=== PATIENT | female | born 1970 | race Caucasian/White ===

== ENCOUNTER 2025-03-23 12:54 | Outpatient (AMB) | payer OTHER, SELFPAY ==
--- OUTSIDE RECORDS SUMMARY | 2011-12-18 | XMS_ITS | Encounter Summary ---
Author Organization [facility] Address [address] [place] [address] Phone Care Team Providers Care Animal Nutrition Teacher Name Role Phone Unavailable Primary Care Provider Unavailabl e Encounter Details Date Type Department Care Team (Late st Contact Info) Description 12/18/2011 Hospital Encounter [facility],Outside Imaging [address] [place] [address] System, Provider [place] In, [place] [address] Social History Tobacco Use Types Packs/Day Years [...] high school, GED, job training, learning the Palau[place] language, technical skills, or developing parenting skills)? [...] It is not the complete legal health record.[facility]
--- OUTSIDE RECORDS SUMMARY | 2025-01-24 09:45 | XMS_ITS ---
Author Organization [facility] Address [address] [place] [address] Care Team Providers Care Experimental Electronics Developer Name Role Phone Sasha Pelletier Primary Care Provider UnavailLeora Vaughn [phone] Encounters Encounter Location Date Provider Diagnosis [facility] [address] [place] [address] 01/24/2025 Leora Reveles Plan Of Treatment No Information Progress Notes * Celina REEDEROB: 1 (55 yo F)Acc No.[id number]:01/24/2025 Progress Notes Patient: Alejandra MILLER Provider: Canelo Reveles DPM :1970 A ge:54 Y S ex:Female Date:01/24/2025 Address:[address] [place], [place] [id number] Pcp:Sasha Pelletier Subjective: * Chief Complaints: * [...] 01/24/2025 Generated for Printi ng/Famoniqueg/eTransmitting on: 1 04:23 PM EDT
--- NOTE | 2025-03-23 13:08 | MHC.OFFVIS ---
Vital Signs 03/23/25 13:09 Height 5 ft 3 in Weight 180 lb BMI 31.9 BP 128/86 Blood Pressure Location Rt brachial Position Sitting Respiration 16 Pulse 79 Pulse Source Pulse Oximeter Pulse Oximetry (%) 98 Oxygen Delivery Method Room Air Intake Visit Reasons: Re-Establish Care - Migraine Allergies No Known Allergies Allergy (Verified 03/23/25 13:08) Medication List - Last Reconciled 03/23/25 by Lanny Muniz CNP escitalopram oxalate 10 mg PO DAILY onabotulinumtoxinA (Botox) units IM sumatriptan succinate mg PO vibegron (Gemtesa) 75 mg PO DAILY HPI Comments Details: Alejandra is a 55-year-old female patient with a past medical history of asthma, knee pain, polycythemia, and chronic migraine. She is here today to reestablish care for her migraine treatment and management. I was previously seeing her [facility] where her migraines were well controlled with Botox therapy every 3 months for prevention and she was utilizing sumatriptan 100 mg for her acute therapy. Historically, her migraines have typically been more predominant to the right side. Her headaches can become severe 3-4 times per month while on Botox therapy described as a pulsating and throbbing pain to the right posterior and temporal area radiating into the neck at times. Sometimes when she has a headache she feels some congestion. Prior to initiation of Botox therapy, she was having at least 15 headache days per month 10 which had severe migrainous features including light and sound sensitivity, and nausea. Headaches have both decreased in frequency and severity since initiation of Botox therapy. Her headaches are generally still right-sided predominant but without such severe debilitating symptoms. She uses her sumatriptan 100 mg sparingly which works well within an hour to abort her headache completely. Sensitive our last visit, she has used her sumatriptan only 1 time with good effect. In the past, we have modified the injections to the front of her face due to history of lid drooping. She did experience at last visit some slight left lid drooping. For her next Botox therapy visit, I will plan to reduce the amount of units in the frontalis muscle and eliminate the corrugators and procerus muscle. Once her lid droop has been fully recovered, we can reconsider placement of the injections or reduce the amount of units in total to the front of face. Past medication trials: Topiramate-no benefit Tricyclic antidepressants-(contraindicated with current use of escitalopram) Beta blockers-(contraindicated with previously noted history of asthma) [facility] Medical History (Updated 03/23/25 @ 13:39 by Lanny Muniz CNP) Migraine Polycythemia Obesity, class 1 Bilateral knee pain Family History Sister Breast cancer Social History Alcohol intake: never Patient Tobacco Use Status: Never used Tobacco Physical Exam Vital Signs: Last Vital Signs Pulse 79 03/23/25 13:09 Resp 16 03/23/25 13:09 BP 128/86 03/23/25 13:09 Pulse Ox 98 03/23/25 13:09 Oxygen Delivery Method Room Air 03/23/25 13:09 BMI result Body Mass Index 31.9 Const General: cooperative, healthy appearing, comfortable and no acute distress Nutritional Appearance: well nourished Orientation/consciousness: patient oriented x3 Limitations: no limitations HEENT Head: Yes normal to inspection and Yes normocephalic Eyes Other: Slight left inner eyelid drooping Visual Reis: normal visual reis by confrontation Alignment and Position: alignment normal Eyelids: Yes eyelids normal Conjunctivae: conjunctivae normal Sclerae: sclerae normal Neck Neck: Yes normal visual inspection and Yes full ROM General: Yes no CVA tenderness Back/Spine/Pelvis Back: no CVA tenderness Cervical Spine: normal cervical lordosis Thoracic/Lumbar Spine: thoracic and lumbar spine normal to inspection Neuro General: patient oriented x3 and deep tendon reflexes 2+ bilaterally Cranial nerves: Yes CN's II-XII intact bilaterally and Yes Facial sensation intact/muscles of mastication intact Cognition (Neuro): normal cognition Gait exam (Neuro): Normal gait present Motor exam (neuro): 5/5 motor strength present throughout and no tremor noted Sensory Exam: double simultaneous stimulation for sensation normal Romberg Test: Negative Pupils: Normal pupillary reactivity/response: bilateral Psych Appearance: grossly normal Mental Status: mental status grossly normal Speech and movement: Normal speech and movement present and Clear speech present Affect: normal affect Attitude: cooperative Thought process: Normal thought process present Thought content: Normal thought content present Insight: Good insight present (Psych) Judgement: Good judgement present (Psych) Assessment & Plan Assessment & Plan (1) Chronic migraine without aura without status migrainosus, not intractable: Code(s): G43.709 - Chronic migraine without aura, not intractable, without status migrainosus Category: Medical Plan Alejandra is a 55-year-old female patient with a past medical history of knee pain, polycythemia, and chronic migraine. She is here today to reestablish care for her migraine treatment and management. She has done extremely well on Botox therapy for migraine control going from 10 migraine days per month with a total of 15 headache days including less severe headache days now to no more than 3 or 4 headaches per month at maximum but generally 1-2 times per month. She has excellent relief with her sumatriptan 100 mg. I would like to continue her on this regimen. Please see HPI above for list of prior therapy trials and reasons for avoidance of other alternative therapies. -continue Botox therapy every 3 months (modify injections at time of next visit due to left lid droop) -continue sumatriptan 100 mg for acute therapy -next Botox is due 04/21/2025 Medications: New sumatriptan succinate 100 mg orally For migraine headache. May repeat dose in 2 hours. Do not exceed 200 mg in 1 day PRN; 10 tabs 5RF migraine headache onabotulinumtoxinA (Botox) 155 units IM ONCE 1 ea 3RF 12 weeks Coding Level of Care Code New Pt Level 3 (89437) Diagnoses Chronic migraine without aura without status migrainosus, not intractable G43.709
[2025-03-23 13:09] VITALS: BP 128/86; PULSE 79; RESP 16; O2SAT 98; BMI 31.9
--- OUTSIDE RECORDS SUMMARY | 2025-03-23 16:23 | XMS_ITS | Encounter Summary ---
Author Organization [facility] Address [address] [place] [address] Phone Care Team Providers Care Engraving Plate Maker Name Role Phone HugoNella Pallavi TRACK HELPER Unavailable ShantelVirginia Alyssa STOCKLAYER Unavailable [phone] Mona Perkins MD Unavailable [phone] Chirag Desai MD Unavailable Apryl Bess TRACK HELPER Unavailable Xiomara Chambers TRACK HELPER Primary Care Provider Gee Guy MD Unavailable Henny Cheney MD Unavailable Unknown, Unknown Primary Care Provider Daisy storey Encounter Details Date Type Department Care Team (Late st Contact Info) Description 04/02/2018 Transcribe Orders [facility] [address] [place] [address] Xiomara Chambers, TRACK HELPER [address] [facility] [address] [place] [address] [email or web address] Social History Tobacco Use Types Packs/Day Years Used Date Smoking Tobacco: Never Smokeless Tobacco: Never Alcohol Use Standard Drinks/Week Comments Yes 1 (1 standard drink = 0.6 oz pur e alcohol) couple drinks per month Comments Unknown Sex and Gender Information Value Date Recorded Sex Assigned at Not on file Legal Sex Female 9:33 PM EDT Gender Identity Not on file Sexual Orientation Not on file documented as of this encounter Plan of Treatment Not on file documented as of this encounter Visit Diagnoses Not on filedocumented in this encounter Additional Health Concerns Assessment Noted Time PHQ-2 Depression Total Score: 0 04/02/20 10:01 AM EDT documented as of this encounter Care Teams Engraving Plate Maker Relationship Specialty Start Date End Date Xiomara Chambers TRACK HELPER [address] [place] [phone] PCP - General Family Medicine 10/24/17 09/02/23 Unknown, Unknown, MD PCP - General 09/03/23 Nella Arias, SUDHIR [address] [place] [address] [email or web address] Historical LMR Provider 03/27/17 Virginia Funes FNP [address] [facility] [address], [address] [place] [address] Historical LMR Provider 03/27/17 03/24/19 Mona Perkins MD 38 [facility]. 204, [address] [place] [address] Historical LMR Provider 03/27/17 Chirag Schuster MD [address] [place] [address] Historical LMR Provider 03/27/17 9 Apryl Bess, SUDHIR [address] [address] Historical LMR Provider 03/27/1703/24 Gee Guy MD [address] [place] [address] [email or web address] Insurance Assigned Provider 07/09/19 11/13/19 Henny Cheney MD [address] [place] [address] [email or web address] Insurance Assigned Provider 11/13/19 12/16/20 documented as of this encounter Additional Source Comments The information contained in this document represents components of the legal health record. It is not the complete legal health record.[facility]
--- OUTSIDE RECORDS SUMMARY | 2025-03-23 16:23 | XMS_ITS | Encounter Summary ---
Author Organization [facility] Address [address] [facility] [address] [place] [address] Phone Care Team Providers Care Rolling Up Machine Operator Name Role Phone HugoNella Pallavi BUTTON BRADDER Unavailable Virginia Funes RN ANESTHESIOLOGY Unavailable Mona Perkins MD Unavailable Chirag Desai MD Unavailable Apryl Bess BUTTON BRADDER Unavailable [phone] Xiomara Chambers BUTTON BRADDER Primary Care Provider Gee Guy MD Unavailable Henny Cheney MD Unavailable Unknown, Unknown Primary Care Provider Daisy storey Encounter Details Date Type Department Care Team (Late st Contact Info) Description 12/03/2017 Ancillary Orders [facility],Outside Imaging [address] [place] [address] System, Provider Not In, PhD [address] [address] Social History Tobacco Use Types Packs/Day Years Used Date Smoking Tobacco: Never Smokeless Tobacco: Never Alcohol Use Standard Drinks/Week Comments Yes 1 (1 standard drink = 0.6 oz pur e alcohol) Comments Unknown Sex and Gender Information Value Date Recorded Sex Assigned at Not on file Legal Sex Female 9:33 PM EDT Gender Identity Not on file Sexual Orientation Not on file documented as of this encounter Plan of Treatment Not on file documented as of this encounter Results * Mammogram Outside (No [...] Noted Time PHQ-2 Depression Total Score: 0 08/05/19 18 10:32 AM EST documented as of this encounter Care Teams Rolling Up Machine Operator Relationship Specialty Start Date End Date Xiomara Chambers BUTTON BRADDER [address] [place] [phone] PCP - General Family Medicine 10/24/17 09/02/23 Unknown, Unknown, MD PCP - General 09/03/23 Nella Arias NP [address] [place] [address] [email or web address] Historical LMR Provider 03/27/17 1 Virginia Funes FNP [address] [facility] 204, [address] [place] [address] Historical LMR Provider 03/27/17 03/24/19 Mona Perkins MD 38 [facility]. 204, [address] [place] [address] Historical LMR Provider 03/27/17 Chirag Schuster MD [address] [place] [address] [email or web address] Historical LMR Provider 03/27/17 Apryl Castaneda NP [address] [place] [phone] Historical LMR Provider 03/27/1703/24 Gee Guy MD [address] [place] [address] [email or web address] Insurance Assigned Provider 07/09/19 11/13/19 Henny Cheney MD [address] [place] [phone] [email or web address] Insurance Assigned Provider 11/13/19 12/16/20 documented as of this encounter Additional Source Comments The information contained in this document represents components of the legal health record. It is not the complete legal health record.[facility]
--- OUTSIDE RECORDS SUMMARY | 2025-03-23 16:24 | XMS_ITS | Patient Health Record ---
Author Organization [facility] [place] Address [address] [place] [address] Care Team Providers Care Special Services Coordinator Name Role Phone PelletierDaraSasha Primary Care Provider Unavailrobby maya Leora Reveles Unavailable [phone] Allergies No Known Allergies Results Component Value Reference Range Notes X ray : Foot, right 3V Reviewed date:10/13/2024 09:10:02 AM Interpretation:See Examination above Performing Lab: Notes/Report: See Examination above Reason For Referral No Information Medications Medication SIG (Take, Route, Frequency, Duration) Notes Start Date End Date Status Escitalopram Oxalate Active Night Splint AFO - L1930 1 wear at rest; Duration: 30 days Active Myrbetriq 50 MG 1 tablet Orally Once a day; Duration: 30 day(s) Not-Taking Probiotic Not-Taking Cranberry 500 MG as directed Orally Not-Taking Sertraline HCl 50 MG 1 tablet Orally Onc e a day; Duration: 30 day(s) Not-Taking Gemtesa Active Immunizations Vaccine Route Administration Date Status Comme nts Influenza Unknown 03/31/2024 Administered COVID-19 Moderna Vaccine Unknown 07/23/2020 Administered Second Dose: 08/20/2020 Social History Tobacco Use: Social History Observation Description Date Details (start date - stop date) Never Smoker NA - NA Tobacco use other than smoking: Question Answer Notes Are you an other tobacco user? No Tobacco Control (Standard) Question Answer Notes Tobacco use: Nonsmoker Additional Findings: Tobacco non-user Current no nsmoker AUDIT-C (Standard) Question Answer Notes Did you have a drink contain ing alcohol in the past year? Yes How often did you have a dri nk containing alcohol in the past year? Monthly or less (1 point) How many drinks did you have on a typical day when you were drinking in the past year? 1 or 2 drinks (0 point) How often did you have six o r more drinks on one occasion in the past year? 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 confirmed Problem Localized, primary osteoarthritis of the ankle and/or foot (851881491) Arthritis of joint of lesser toe, right (M19.071) Active confirmed Vital Signs Blood pressure diastolic 75 mm Hg 11/30/2024 Height 5ft 3in in 11/30/2024 Blood pressure systolic 120 mm Hg 11/30/2024 Weight 190 lbs 11/30/2024 BMI 33.65 kg/m2 11/30/2024 Procedures Procedure Date Ordered Date Performed Result Body Sit e ,P7032-UBT TENDON SHEATH/LIGAMENT 10/13/2024 N/A ,[id number] TENDON SHEATH/LIGAMENT 11/30/2024 N/A Encounters Encounter Location Date Provider Diagnosis [facility] [address] [place] [address] [place] [address] 10/13/2024 Leora Black Plantar fasciitis of right foot M72.2 ; Pain in right toe(s) M79.674 ; Pain in right foot M79.671 ; Calcaneal spur, right foot M77.31 ; Interstitial myositis of right foot M60.171 ; Bursitis of right foot M77.51 ; Other hammer toe(s) (acquired), right foot M20.41 ; Arthritis of joint of lesser toe, right M19.071 and Subluxation of metatarsophalangeal joint of toe, initial encounter [id number] [facility] [address] [address] 11/30/2024 Leora Reveles Plantar fasciitis of right foot M72.2 ; Other hammer toe(s) (acquired), right foot M20.41 ; Pain in right toe(s) M79.674 ; Pain in right foot M79.671 ; Calcaneal spur, right foot M77.31 ; Interstitial myositis of right foot M60.171 ; Bursitis of right foot M77.51 ; Arthritis of joint of lesser toe, right M19.071 and Subluxation of metatarsophalangeal joint of toe, initial encounter [id number] [facility] [address] [address] 08/06/2024 [facility] Abdirizak [facility] [address] [address] 08/27/2024 Leora Reveles Assessments Encounter Date Diagnosis (ICD Code) Assessment Notes Treatment Notes Treatment Clinical Notes Section Notes 10/13/2024 Pain in right toe(s) (ICD-10 - M79.674) 10/13/2024 Plantar fasciitis of right foot (ICD-10 - M72.2) Patient Educated with: HEEL CORD STRETCHES.pdf (HEEL CORD STRETCHES.pdf ) Patient Educated with: RICE THERAPY.pdf (RICE THERAPY.pdf) Patient Educated with: RICE THERAPY.pdf (RICE THERAPY.pdf) Patient Educated with: INJECTIONTHER APY.pdf (INJECTIONTHE RAPY.pdf) 11/30/2024 Other hammer toe(s) (acquired), right foot (ICD-10 - M20.41) 11/30/2024 Plantar fasciitis of right foot (ICD-10 - M72.2) Patient Educated with: INJECTIONTHER APY.pdf (INJECTIONTHE RAPY.pdf) 11/30/2024 Pain in right toe(s) (ICD-10 - M79.674) 10/13/2024 Pain in right foot (ICD-10 - M79.671) 11/30/2024 Pain in right foot (ICD-10 - M79.671) 10/13/2024 Calcaneal spur, righ t foot (ICD-10 - M77.31) 10/13/2024 Interstitial myositi s of right foot (ICD-10 - M60.171) 11/30/2024 Calcaneal spur, righ t foot (ICD-10 - M77.31) 11/30/2024 Interstitial myositi s of right foot (ICD-10 - M60.171) 10/13/2024 Bursitis of right fo ot (ICD-10 - M77.51) 10/13/2024 Other hammer toe(s) (acquired), right foot (ICD-10 - M20.41) 11/30/2024 Bursitis of right fo ot (ICD-10 - M77.51) 11/30/2024 Arthritis of joint o f lesser toe, right (ICD-10 - M19.071) 10/13/2024 Arthritis of joint o f lesser toe, right (ICD-10 - M19.071) 10/13/2024 Subluxation of metatarsophalangeal joint of toe, initial encounter (ICD-10 - S93.149A) 11/30/2024 Subluxation of metatarsophalangeal joint of toe, initial encounter (ICD-10 - S93.149A) Plan Of Treatment Pending Test Test Name Order Date ,[id number] TENDON SHEATH/LIGAMENT 0 11/27/2020 [id number] TENDON SHEATH/LIGAMENT 0 01/15/2021 [id number] TENDON SHEATH/LIGAMENT 0 02/20/2021 [id number] TENDON SHEATH/LIGAMENT 0 10/13/2024 [id number] TENDON SHEATH/LIGAMENT 0 11/30/2024 Insurance Providers Payer Name Payer Address Payer Phone Subscriber Number Group Number Insured Name Patient Relationship to Insured Coverage Start Date Coverage End Date [facility] All Others [address] [place] [address] [id number] Alejandra Huntley Self - patient is the insured Medical (General) History Medical History History ICD Code Anxiety Back,Hip,and Knee pain Headaches/Migraines Chicken pox Surgical History Surgery Date(Month/Year)
--- OUTSIDE RECORDS SUMMARY | 2025-03-23 16:24 | XMS_ITS | Clinical Summary ---
Author Organization [facility] Address [facility] [address] [place] [phone] Phone Care Team Providers Care Operator Catalyst Concentration Name Role Phone Unknown, Unknown Primary Care Provider Daisy storey Allergies No known active allergies Medications fluocinolone 0.01 % cream Apply topically 2 (two) times a day. 60 g 1 1 Active Lactobacillus acidophilus (PROBIOTIC) 10 billion cell Cap Probiotic Take No date recorded No form recorded No frequency recorded No route recorded No set duration recorded No set duration amount recorded active No dosage strength recorded No dosage strength units of measure recorded Active botulinum toxin type A (BOTOX) 200 unit SolR See Instructions, For office injection IM by Physician for Migraine, # 1 kit, 3 Refills, Maintenance, 04/17/21 12:49:00 [facility], [facility], Partial fill upon patient request if the prescription is for a schedule II opioid drug., 163, cm,... 1 Active GEMTESA 75 mg tablet Take 75 mg by mouth daily. 3 Active escitalopram oxalate (LEXAPRO) 10 MG tablet Take 1 tablet (10 mg total) by mouth daily. 90 tablet 3 4 Active SUMAtriptan (IMITREX) 100 MG tabletIndications :Migraine without aura and without status migrainosus, not intractable TAKE 1 TABLET BY MOUTH ONCE daily NEEDED 9 tablet 3 4 Active semaglutide (WEGOVY) 2.4 mg/0.75 mL subcutaneous pen injection Inject 0.75 mL (2.4 mg total) under the skin every 7 days. 3 mL 3 4 Active Active Problems Problem Noted Date Diagnosed Date Mixed hyperlipidemia 07/02/2022 Plantar fasciitis of left foot 11/19/2020 Overactive bladder 01/07/2020 Generalized anxiety disorder 01/07/2020 Hypertriglyceridemia 08/05/2017 Lichen planus 08/05/2017 Migraine without aura 08/05/2017 Polycythemia 08/05/2017 Obesity (BMI 30.0-34.9) 08/05/2017 Resolved Problems Problem Noted Date Diagnosed Date Resolved Date Decreased glomerular filtration rate (GFR) 08/05/2017 07/02/2022 Temporomandibular joint disorder 08/05/2017 07/08/2023 Immunizations Immunization Administration Dates Next Due COVID-19 (Pre-03/31) Moderna Vaccine, mRNA, PF 08/20/2020,07/23/2020 INFLUENZA, SPLIT VIRUS, TRIV ALENT W/ PRESERVATIVE IM 03/16/2015 Influenza Quadrivalent MDCK Preservative Free IM 04/20/2023,03/18/2018 Influenza Quadrivalent MDCK w/Preservative IM 03/30/2019 Influenza Quadrivalent Prese rvative Free IM 03/09/2022,03/29/2021,03/08/2020,2016,03/14/2016 Influenza Quadrivalent w/ Preservative IM 03/02/2014 Influenza, Unspecified Formulation 03/08/2020 Tdap 12/26/2016,03/02/2014 Zoster recombinant 08/27/2021,05/19/2021 Family History Medical History Relation Comments No Known Problems Daughter Hypertension Father Hyperlipidemia Mother No Known Problems Sister No Known Problems Son Relation Status Comments Daughter Alive Father Alive Mother Alive Sister Alive Son Alive Social History Tobacco Use Types Packs/Day Years Used Date Smoking Tobacco: Never Smokeless Tobacco: Never Tobacco Cessation:Counseling Given: Not Answered Alcohol Use Standard Drinks/Week Comments Yes 0 [...] high school, GED, job training, learning the [place] language, technical skills, or developing parenting skills)? [...] your housing situation today? I have karan sing 07/08/2023 How many times have you move [...] on file Sexual Orientation Not on file Last Filed Vital Signs Vital Sign Reading Time Taken Comments Blood Pressure 124/84 07/08/2023 2:49 PM EST Pulse 67 07/08/2023 2:49 PM EST Temperature 37.1 C (98.7 F) 06/28/2021 3:01 PM EST Respiratory Rate 16 07/08/2023 2:49 PM EST Oxygen Saturation 97% 07/08/2023 2:49 PM EST Inhaled Oxygen Concentration - - Weight 85.3 kg (188 lb) 12/27/2022 8:59 AM EDT Height 160.7 cm (5' 3.27 ) 12/27/2022 8:59 AM ED T Body Mass Index 33.02 12/27/2022 8:59 AM EDT Plan of Treatment Health Maintenance Due Date Last Done Comments COLONOSCOPY 02/14/2016 FIT TEST 02/14/2016 FOBT 02/14/2016 SIGMOIDOSCOPY 02/14/2016 VIRTUAL COLONOSCOPY 02/14/2016 PNEUMOCOCCAL VACCINES (50+ years) (1 of 1 - PCV) 2021 PAP SMEAR 12/16/2023 12/15/2020, 12/02/2018 DEPRESSION SCREENING 07/08/2024 07/08/2023 MAMMOGRAM 01/01/2025 01/01/2023, 12/08, 01/01/2021, Additional history exists INFLUENZA VACCINE (#1) 2025 , 03/09/2022, 03/29/2021, Additional history exists COVID-19 VACCINE ( season) 2025 03/09/2022, 04/01/2021, 08/20/2020, Additional history exists COLOGUARD 07/16/2025 07/16/2022 COLORECTAL CANCER SCREENING 07/16/2025 SCREENING FOR DIABETES 12/23/2025 12/23/2022 Adult Td,Tdap Booster 12/26/2026 12/26/2016, 014 LIPID PANEL 12/24/2027 12/23/2022, 06/10, 01/12/2019, Additional history exists RSV VACCINE (1 - 1-dose 75+ series) 2046 HIV ONE-TIME SCREENING (18-65 YEARS) Completed 04/15/2019 ZOSTER VACCINES Completed 08/27/2021, 05/19/2021 HEPATITIS C SCREENING Completed 07/01/2022 SMOKING STATUS SCREENING (Once After 26 Yrs) Completed 07/08/2023 HEPATITIS A VACCINES Aged Out No long er eligible based on patient's age to complete this topic HIB VACCINES Aged Out No longer eligi ble based on patient's age to complete this topic MENINGOCOCCAL VACCINES (ACWY) Aged Out No longer eligible based on patient's age to complete this topic MENINGOCOCCAL VACCINES (B) Aged Out N o longer eligible based on patient's age to complete this topic Medical Devices Not on file Procedures Procedure Name Priority Date/Time Associated Diagnosis Comments HM MAMMOGRAPHY Routine 01/01/2023 10:58 AM EDT LIPID PANEL Routine 12/23/2022 8:28 AM EDT Mixed hyperlipidemia HEPATITIS C ANTIBODY, QUALITATIVE Routine 07/01/2022 8:53 AM EST Need for hepatitis C screening test PAP SMEAR FOR RESULT ENTRY ONLY Routine 12/15/2020 from Last 3 Months or Most Recently Relevant to Health Maintenance Results * MAMMOGRAPHY FOR RESULT ENTRY ONLY (01/01/2023 10:58 AM EDT) us Historical Provider HEALTH MAINTENANCE Final Result * (ABNORMAL) Lipid panel (12/23/2022 8:28 AM EDT) HDL 46 mg/dL [facility] Comment: Interpretation <40 mg/dL: Low HDL cholesterol (major risk factor for CHD) Greater than or equal to 60 mg/dL: High HDL cholesterol ( negative risk factor for CHD) HDL - cholesterol is affected by a number of factors, e.g. smoking, excerise, hormones, sex and age. CHOLESTEROL 217 0 - 240 mg/dL [facility] TRIGLYCERIDES 154 30 - 160 mg/dL [facility] LDL 140(H) 50 - 129 mg/dL [facility] Comment: LDL levels in terms of risk for coronary heart disease: <100 mg/dL: Optimal 100-129 mg/dL: Near or above optimal 130-159 mg/dL: Borderline high 160-189 mg/dL: High >190 mg/dL: Very High CARDIAC RISK RATIO 4.7(H) 3.3 - 4.4 C [facility] Blood 12/23/2022 8:28 AM EDT 12/23/2022 8:32 AM EDT Xiomara Chambers NP LAB BLOOD ORDERABLES Final Resu lt Performing Organization Address City/[facility]/ZIP Co de Phone Number [address] [address] * Hepatitis C antibody, qualitative (07/01/2022 8:53 AM EST) HCV NON-REACTIV E NON-REACTI VE [facility] Blood 07/01/2022 8:53 AM EST 07/01/2022 8:57 AM EST Xiomara Chambers NP LAB BLOOD ORDERABLES Final Resu lt Performing Organization Address City/[facility] Co de Phone Number [address] [address] * PAP SMEAR FOR RESULT ENTRY ONLY (12/15/2020) Historical Provider HEALTH MAINTENANCE Edited Result - Final from Last 3 Months or Most Recently Relevant to Health Maintenance [facility] EPO PPO EPO PPO EPO PPO EPO PPO EPO PPO EPO [facility] PPO EPO [facility] PPO EPO Care Teams Operator Catalyst Concentration Relationship Specialty Start Date End Date Unknown, Unknown, PCP - General 09/03/23 Additional Source Comments The information contained in this document represents components of the legal health record. It is not the complete legal health record.[facility]
== END 2025-03-23 13:25 | disposition home or self-care (01) ==
LOC: HO.HSM 12:55
PROVIDERS: PCP Nurse Practitioner Family; Visit Provider Nurse Practitioner
DX: G43.709 Chronic migraine without aura, not intractable, without status migrainosus (principal)
CPT/HCPCS: 99203

== ENCOUNTER 2025-04-21 07:29 | Outpatient (AMB) | payer OTHER, SELFPAY ==
--- OUTSIDE RECORDS SUMMARY | 2011-12-17 23:00 | XMS_ITS | Encounter Summary ---
Author Organization [facility] Address [address] [place] [address] Phone Care Team Providers Care Warehouse Checker Name Role Phone Unavailable Primary Care Provider Unavailabl e Encounter Details Date Type Department Care Team (Late st Contact Info) Description 12/18/2011 Hospital Encounter [facility],Outside Imaging [address] [place] [address] System, Provider [place] In, [place] [address] Social History Tobacco Use Types Packs/Day Years Used Date Smoking Tobacco: Never Smokeless Tobacco: Never Alcohol Use Standard Drinks/Week Comments Yes 0 (1 standard drink = 0.6 oz pur e alcohol) 1-2 drinks, monthly or less Child or Family Care Answer Date Record ed Do you have problems with on e of the following making it difficult for you to work, study, or receive health care? No 07/08/2023 Education Answer Date Recorded Are you interested in help w ith more adult education (for example, completing high school, GED, job training, learning the Yemeni language, technical skills, or developing parenting skills)? No 07/08/2023 Are you concerned about learning? Not on file 07/08/2023 No 07/08/2023 Yes 07/08/2023 Food Answer Date Recorded Within the past 6 months we worried whether our food would run out before we got money to buy more. Never True 07/08/2023 Within the past 6 months the food we bought just didn't last and we didn't have enough money to get more. Never True Residential Stability Answer Date Recor ded What is your housing situation today? I have karan gillette 07/08/2023 How many times have you move d in the past 12 months? Zero (I did not move) 07/08/2023 Paying for Meds Answer Date Recorded Do you have trouble paying for medicines? No 07/08/2023 Paying Utility Bills Answer Date Record ed Do you have trouble paying your heating or elect ricity bill? No 07/08/2023 Transportation Answer Date Recorded Has the lack of transportati on kept you from medical appointments or from getting medications? No 07/08/2023 Unemployment Answer Date Recorded Are you currently unemployed or working on a part-time or temporary basis, and looking for work? No 06/28/2022 Digital Access Answer Date Recorded No 07/08/2023 Yes 07/08/2023 Do you have reliable internet access at home? Ye s 07/08/2023 Do you have a device (e.g., phone, tablet, computer) with a working camera? Yes 07/08/2023 Intimate Partner Violence Answer Date R ecorded Denied Basic Needs Not on file 07/08/2023 In the past 12 months have y ou been in a relationship with a person who hurts, threatens, or tries to control you? No 07/08/2023 Worried food would run out Not on file 07/08 In the past 12 months have y ou been in a relationship with a person who hurts, threatens, or tries to control you? No 07/08/2023 Comments No Sex and Gender Information Value Date Recorded Sex Assigned at Not on file Legal Sex Female 9:33 PM EDT Gender Identity Not on file Sexual Orientation Not on file documented as of this encounter Functional Status documented as of this encounter Plan of Treatment Not on file documented as of this encounter Procedures Procedure Name Priority Date/Time Associated Diagnosis Comments BI MAMMOGRAM OUTSIDE (NO INTERPRETATION) Routine 12/18/2011 12:00 AM EDT documented in this encounter Results * Mammogram Outside (No Interpretation) (12/18/2011 12:00 AM EDT) Narrative SYSTEMGENERATED, DOCUMENTATION - 12/03/2017 3:26 PM EDT This study is for PACS storage only and not for interpretation. us Provider Not In System PhD IMG OUTSIDE IMAGING W /OUT INTERPRETATION Final Result documented in this encounter Visit Diagnoses Not on filedocumented in this encounter Additional Source Comments The information contained in this document represents components of the legal health record. It is not the complete legal health record.[facility]
--- OUTSIDE RECORDS SUMMARY | 2025-01-24 08:45 | XMS_ITS ---
Author Organization [facility] Address [address] [place] [address] Care Team Providers Care Double End Chucking Machine Operator Name Role Phone Sasha Pelletier Primary Care Provider UnavailLeora Vaughn [phone] Encounters Encounter Location Date Provider Diagnosis [facility] [address] [place] [address] 01/24/2025 Leora Reveles Plan Of Treatment No Information Progress Notes * Celina REEDEROB: 1 (55 yo F)Acc No.[id number]:01/24/2025 Progress Notes Patient: Alejandra MILLER Provider: Canelo Reveles DPM :1970 A ge:54 Y S ex:Female Date:01/24/2025 Address:[address] [place], [place] [id number] Pcp:Sasha Pelletier Subjective: * Chief Complaints: * * Medical History: Objective: * Vitals: Assessment: Plan: * Treatment: * Images: * The named appointment provid er may or may not be the originator of this progress note, and it is not deemed complete until electronically signed by the appointment provider. Sign off status: Pending * Provider: Canelo Reveles DPM Date: 0 01/24/2025 Generated for Tatei trung/Russ/eTransmitting on: 06/21/2024 07:31 AM EST
--- NOTE | 2025-04-21 07:30 | A.OFFVIS_ITS ---
Vital Signs 04/21/25 07:37 Height 5 ft 3 in Weight 190 lb BMI 33.7 BP 122/76 Blood Pressure Location Rt brachial Position Sitting Respiration 16 Pulse 80 Pulse Source Pulse Oximeter Pulse Oximetry (%) 100 Oxygen Delivery Method Room Air Intake Visit Reasons: botox Wood Turning Lathe Operator Required: No Allergies No Known Allergies Allergy (Verified 04/21/25 07:38) HPI Comments Details: Alejandra is a 55-year-old female patient with a past medical history of asthma, knee pain, polycythemia, and chronic migraine. She is here today to for Botox therapy. I was previously seeing her [facility] where her migraines were well controlled with Botox therapy every 3 months for prevention and she was utilizing sumatriptan 100 mg for her acute therapy. Historically, her migraines have typically been more predominant to the right side. Her headaches can become severe 3-4 times per month while on Botox therapy described as a pulsating and throbbing pain to the right posterior and temporal area radiating into the neck at times. Sometimes when she has a headache she feels some congestion. Prior to initiation of Botox therapy, she was having at least 15 headache days per month 10 which had severe migrainous features including light and sound sensitivity, and nausea. Headaches have both decreased in frequency and severity since initiation of Botox therapy. Her headaches are generally still right-sided predominant but without such severe debilitating symptoms. She uses her sumatriptan 100 mg sparingly which works well within an hour to abort her headache completely. Sensitive our last visit, she has used her sumatriptan only 1 time with good effect. In the past, we have modified the injections to the front of her face due to history of lid drooping. We did complete injections in the procerus and benzene operator muscles during her last Botox therapy though she did develop slight left medial brow ptosis after those injections. We decided that today we would omit the procerus and benzene operator injections and complete the rest of the migraine protocol. She also mentions today that she has experienced some morning headaches not similar to her migraine-type headaches that generally are present in the morning after awakening and dissipate throughout the day. Her has been also notes that she has been snoring even when sleeping on her side. She also has some episodes of apnea that he notices. Past medication trials: Topiramate-no benefit Tricyclic antidepressants-(contraindicated with current use of escitalopram) Beta blockers-(contraindicated with previously noted history of asthma) [facility] Medical History (Updated 04/21/25 @ 07:50 by Lanny Muniz CNP) Migraine Polycythemia Obesity, class 1 Bilateral knee pain Family History Sister Breast cancer Social History Alcohol intake: never Patient Tobacco Use Status: Never used Tobacco Review of Systems Const All systems reviewed & are unremarkable except as noted in HPI and below Physical Exam Vital Signs: Last Vital Signs Pulse 80 04/21/25 07:37 Resp 16 04/21/25 07:37 BP 122/76 04/21/25 07:37 Pulse Ox 100 04/21/25 07:37 Oxygen Delivery Method Room Air 04/21/25 07:37 BMI result Body Mass Index 33.7 Const General: cooperative, healthy appearing, comfortable and no acute distress Nutritional Appearance: well nourished Orientation/consciousness: patient oriented x3 Limitations: no limitations HEENT Head: Yes normal to inspection and Yes normocephalic Eyes General: appearance normal, both eyes and all related structures Visual Reis: normal visual reis by confrontation Alignment and Position: alignment normal Periorbital: periorbital findings normal Eyelids: Yes eyelids normal Conjunctivae: conjunctivae normal Sclerae: sclerae normal Direct Ophthalmoscopy: normal light reflex, no papilledema and fundi normal bilaterally Neck Neck: Yes normal visual inspection and Yes full ROM General: Yes no CVA tenderness Back/Spine/Pelvis Back: no CVA tenderness Cervical Spine: normal cervical lordosis Thoracic/Lumbar Spine: thoracic and lumbar spine normal to inspection Neuro General: patient oriented x3, tone normal and deep tendon reflexes 2+ bilaterally Cranial nerves: Yes CN's II-XII intact bilaterally and Yes Facial sensation intact/muscles of mastication intact Cognition (Neuro): normal cognition Gait exam (Neuro): Normal gait present Motor exam (neuro): 5/5 motor strength present throughout and no tremor noted Sensory Exam: double simultaneous stimulation for sensation normal Romberg Test: Negative Pupils: Normal pupillary reactivity/response: bilateral Psych Appearance: grossly normal Mental Status: mental status grossly normal Speech and movement: Normal speech and movement present and Clear speech present Affect: normal affect Attitude: cooperative Thought process: Normal thought process present Thought content: Normal thought content present Insight: Good insight present (Psych) Judgement: Good judgement present (Psych) Office Procedures Botulinum toxin Injection Details: Procedure: Botox therapy for Chronic Migraine Laterally: Bilateral Indications: Chronic Migraine Medications: Botox 155units How the med was supplied: Buy and bill Timeout performed before procedure, patient identified with full name and date of . Risks and benefits of procedure reviewed, as well as site verified, sonsent signed, allergies reviewed, and medication reconsilliatino reviewed/completed. Following universal hygiene protocol and PREEMPT protocol, Botox 200unit vial was reconstituted with 4cc normal saline for a final concentration of 5units/0.1cc. The areas of injection were cleansed with alcohol. A 30g 0.5 needle was used to administer the injections as below. Procerus: 5units midline Senior Wealth Advisor: 5units left and 5units right Frontalis: 10units left and 10units right Temporalis: 20units left and 20units right Occipitalis:15units left and 15units right Cervical paraspinal 10units left and 10units right Trapezius 15units left and 15units right No noted paresthesias during injection 155units of Botox used and 45units wasted per PREEMPT protocol Complications: None Patient was observed for 15 minutes after the procedure and discharged home with instructions to apply ice to their head as needed. 17204 - Migraine Procedure code (CPT) selection complete Office Meds onabotulinumtoxinA 200 unit solution for injection Performing Provider: Lanny Muniz CNP Performing Location: [facility] Administered by: Lanny Muniz CNP on 04/21/25 08:00 Dose Route Admin Location Dispensed Lot Number Expiration Date [facility] Offset Label Rewinder 140 unit IM 200 units [id number] 06/08/27 3744-7569-61 [employer] N/BOTOX Total Dispensed Waste 200 units 30 % Assessment & Plan Assessment & Plan (1) Chronic migraine without aura without status migrainosus, not intractable: Code(s): G43.709 - Chronic migraine without aura, not intractable, without status migrainosus Category: Medical (2) Snoring: Code(s): R06.83 - Snoring Category: Medical (3) Morning headache: Code(s): R51.9 - Headache, unspecified Category: Medical Plan Alejandra is a 55-year-old female patient with a past medical history of asthma, knee pain, polycythemia, and chronic migraine. She is here today to for Botox therapy. There have been no changes to her migraine headaches since our last visit and she continues with good control and as needed use of sumatriptan 100 mg. Botox was performed today with omission of the benzene operator muscles and procerus muscle. Frontalis muscles were injected high up. She does bring up concerns regarding morning headaches and snoring. She would like to consider a sleep study. I will place orders for home sleep study. -Botox therapy performed today -continue sumatriptan 100 mg for acute therapy -home sleep study ordered -follow up in 12 weeks for next round of Botox therapy or sooner if needed Orders: Orders RT home sleep study Today G43.709 - Chronic migraine without aura, not intractable, without status migrainosus, R06.83 - Snoring, R51.9 - Headache, unspecified AMB Botulinum toxin Injection Today G43.709 - Chronic migraine without aura, not intractable, without status migrainosus Coding Level of Care Code Est Pt Level 4 (08149) Diagnoses Chronic migraine without aura without status migrainosus, not intractable G43.709 Snoring R06.83 Morning headache R51.9 CPT Codes Botox Injection - Botox 3: 76640 - Migraine ([id number])
--- OUTSIDE RECORDS SUMMARY | 2025-04-21 07:31 | XMS_ITS | Encounter Summary ---
Author Organization [facility] Address [address] [employer] [facility] [place] [address] [place] [address] Phone Care Team Providers Care Heat Plant Specialist Name Role Phone HugoNella Pallavi SHOP TECH Unavailable Virginia Funes ENTERTAINMENT REPORTER Unavailable Mona Perkins MD Unavailable Chirag Desai MD Unavailable Apryl Bess SHOP TECH Unavailable Xiomara Chambers SHOP TECH Primary Care Provider Gee Guy MD Unavailable Henny Cheney MD Unavailable Unknown, Unknown Primary Care Provider Daisy storey Encounter Details Date Type Department Care Team (Late st Contact Info) Description 12/03/2017 Ancillary Orders [facility],Outside Imaging [address] [place] [address] System, Provider Not In, PhD [address] [address] Social History Tobacco Use Types Packs/Day Years [...] documented as of this encounter Care Teams Heat Plant Specialist Relationship Specialty Start Date End Date Xiomara Chambers SHOP TECH [address] [place] [phone] PCP - General Family Medicine 10/24/17 09/02/23 Unknown, Unknown, MD PCP - General 09/03/23 Nella Arias NP [address] [place] [address] [email or web address] Historical LMR Provider 03/27/17 1 Virginia Funes FNP 38 [facility] 204, [address] [place] [address] Historical LMR Provider 03/27/17 03/24/19 Mona Perkins MD 38 [facility]. 204, [address] [place] [address] Historical LMR Provider 03/27/17 Chirag Schuster MD [address] [place] [address] [email or web address] Historical LMR Provider 03/27/17 Apryl Castaneda NP [address] [place] [phone] Historical LMR Provider 03/27/1703/24 Gee Guy MD [address] [place] [address] [email or web address] Insurance Assigned Provider 07/09/19 11/13/19 Henny Cheney MD [address] [place] [address] [email or web address] Insurance Assigned Provider 11/13/19 12/16/20 documented as of this encounter Additional Source Comments The information contained in this document represents components of the legal health record. It is not the complete legal health record.[facility]
--- OUTSIDE RECORDS SUMMARY | 2025-04-21 07:31 | XMS_ITS | Patient Health Record ---
Author Organization [facility] Address 81 [facility] [place] [address] Care Team Providers Care Printing Table Worker Name Role Phone PelletierDaraSasha Primary Care Provider Unavailrobby maya Leora Reveles Unavailable [phone] Allergies No Known Allergies Results Component Value [...] Vaccine Route Administration Date Status Comme nts COVID-19 Moderna Vaccine Unknown 07/23/2020 Administered Second Dose: 08/20/2020 Influenza Unknown 03/31/2024 Administered Social History Tobacco Use: Social History Observation [...] Problem Acquired hammer toe of right foot (2401507005443995) Other hammer toe(s) (acquired), right foot (M20.41) Active confirmed Problem Plantar fasciitis of right foot (52840679714332086 ) Plantar fasciitis of right foot (M72.2) Active confirmed Problem Interstitial myositis (69021634) Interstitial myositis of right foot (M60.171) Active confirmed Problem Localized, primary osteoarthritis of the ankle and/or foot (416018305) Arthritis of joint of lesser toe, right (M19.071) Active confirmed Vital Signs Blood pressure diastolic 75 mm Hg 11/30/2024 Height 5ft 3in in 11/30/2024 Blood pressure systolic 120 mm Hg 11/30/2024 Weight 190 lbs 11/30/2024 BMI 33.65 kg/m2 11/30/2024 Procedures Procedure Date Ordered Date Performed Result Body Sit e ,[id number] TENDON SHEATH/LIGAMENT 10/13/2024 N/A ,[id number] TENDON SHEATH/LIGAMENT 11/30/2024 N/A Encounters Encounter Location Date [facility] [address] [place] [address] [place] [address] 10/13/2024 Leora Black Plantar fasciitis of right [...] metatarsophalangeal joint of toe, initial encounter S93.149A [facility] [address] [address] 11/30/2024 Leora Reveles Plantar fasciitis of right [...] metatarsophalangeal joint of toe, initial encounter S93.149A [facility] [address] [address] 08/06/2024 [facility] Abdirizak [facility] [address] [address] 08/27/2024 Leora Reveles Assessments Encounter Date Diagnosis [...] Treatment Pending Test Test Name Order Date ,[id number] TENDON SHEATH/LIGAMENT 0 11/27/2020 [id number] TENDON SHEATH/LIGAMENT 0 01/15/2021 52932,[id number] TENDON SHEATH/LIGAMENT 0 02/20/2021 56917,[id number] TENDON SHEATH/LIGAMENT 0 10/13/2024 19473,[id number] TENDON SHEATH/LIGAMENT 0 11/30/2024 Insurance Providers Payer Name Payer Address Payer Phone Subscriber Number Group Number Insured Name Patient Relationship to Insured Coverage Start Date Coverage End Date [facility] All Others [address] [place] [address] [id number] Alejandra Huntley Self - patient is the insured Medical (General) History Medical History History ICD Code Anxiety Back,Hip,and Knee pain Headaches/Migraines Chicken pox Surgical History Surgery Date(Month/Year)
--- OUTSIDE RECORDS SUMMARY | 2025-04-21 07:31 | XMS_ITS | Encounter Summary ---
Author Organization [facility] Address [address] [place] [address] Phone Care Team Providers Care Production Hardener Name Role Phone HugoNella Pallavi INFORMATION TECHNOLOGY ANALYST Unavailable ShantelVirginia Alyssa MACHINE GROUP LEADER Unavailable Mona Perkins MD Unavailable Chirag Desai MD Unavailable Apryl Bess INFORMATION TECHNOLOGY ANALYST Unavailable [phone] Xiomara Chambers INFORMATION TECHNOLOGY ANALYST Primary Care Provider Gee Guy MD Unavailable Henny Cheney MD Unavailable Unknown, Unknown Primary Care Provider Daisy storey Encounter Details Date Type Department Care Team (Late st Contact Info) Description 04/02/2018 Transcribe Orders [facility] [address] [place] [address] Xiomara Chambers, INFORMATION TECHNOLOGY ANALYST [address] [facility] [address] [place] [address] Social History Tobacco Use Types Packs/Day Years [...] documented as of this encounter Care Teams Production Hardener Relationship Specialty Start Date End Date Xiomara Chambers INFORMATION TECHNOLOGY ANALYST [address] [facility] [address] [address] PCP - General Family Medicine 10/24/17 09/02/23 Unknown, Unknown, PCP - General 09/03/23 Nella Arias NP [address] [place] [address] [email or web address] Historical LMR Provider 03/27/17 Virginia Funes FNP 38 [facility] 204, [address] [place] [address] [email or web address] Historical LMR Provider 03/27/17 03/24/19 Mona Perkins MD 38 [facility] 204, [address] [place] [address] Historical LMR Provider 03/27/17 Chirag Schuster MD [address] [place] [address] Historical LMR Provider 03/27/17 9 Apryl Bess, SUDHIR [address] [address] Historical LMR Provider 03/27/1703/24 Gee Guy MD [address] [place] [address] [email or web address] Insurance Assigned Provider 07/09/19 11/13/19 Henny Cheney MD [address] [place] [address] [email or web address] Insurance Assigned Provider 11/13/19 12/16/20 documented as of this encounter Additional Source Comments The information contained in this document represents components of the legal health record. It is not the complete legal health record.[facility]
--- OUTSIDE RECORDS SUMMARY | 2025-04-21 07:31 | XMS_ITS | Clinical Summary ---
Author Organization [facility] Address [facility] [employer] [facility] [address] [place] [address] Phone Care Team Providers Care Chief Operating Officer Name Role Phone Unknown, Unknown Primary Care [...] 1 kit, 3 Refills, Maintenance, 04/17/21 12:49:00 [facility], [facility], Partial fill upon patient request [...] high school, GED, job training, learning the [place] Islander language, technical skills, or developing parenting skills)? [...] on patient's age to complete this topic IPV VACCINES Aged Out No longer eligi ble [...] RESULT ENTRY ONLY (01/01/2023 10:58 AM EDT) Historical Provider HEALTH MAINTENANCE Final Result * (ABNORMAL) Lipid panel (12/23/2022 8:28 AM EDT) HDL 46 mg/dL [facility] Comment: Interpretation <40 mg/dL: Low HDL cholesterol (major risk factor for CHD) Greater than or equal to 60 mg/dL: High HDL cholesterol ( negative risk factor for CHD) HDL - cholesterol is affected by a number of factors, e.g. smoking, excerise, hormones, sex and age. CHOLESTEROL 217 0 - 240 mg/dL [facility] TRIGLYCERIDES 154 30 - 160 mg/dL [facility] LDL 140(H) 50 - 129 mg/dL [facility] Comment: LDL levels in terms of risk for coronary heart disease: <100 mg/dL: Optimal 100-129 mg/dL: Near or above optimal 130-159 mg/dL: Borderline high 160-189 mg/dL: High >190 mg/dL: Very High CARDIAC RISK RATIO 4.7(H) 3.3 - 4.4 C [facility] Blood 12/23/2022 8:28 AM EDT 12/23/2022 8:32 AM EDT Xiomara Chambers NP LAB BLOOD BKR ORDERABLES Final Result Performing Organization Address City/[facility]/ZIP Co de Phone Number [address] [address] * Hepatitis C antibody, qualitative (07/01/2022 8:53 AM EST) HCV NON-REACTIV E NON-REACTI VE [facility] Blood 07/01/2022 8:53 AM EST 07/01/2022 8:57 AM EST Xiomara Chambers NP LAB BLOOD BKR ORDERABLES Final Result Performing Organization Address [facility]/ZIP Co de Phone Number [address] [address] * PAP SMEAR FOR RESULT ENTRY ONLY (12/15/2020) Historical Provider HEALTH MAINTENANCE Edited Result - Final from Last 3 Months or Most Recently Relevant to Health Maintenance Insurance [facility] PPO EPO PPO EPO Member Subscriber Plan / Payer (Ef fective 2018-Present) Name:Alejandra Huntley Relation to Subscriber:Self Name:Alejandra Huntley Payer ID:[id number] (NAIC) Type:PPO Address: [address] PPO EPO Member Subscriber Plan / Payer (Ef fective 2018-Present) Name:Alejandra Huntley Relation to Subscriber:Self Name:Alejandra Huntley Payer ID:[id number] (NAIC) Type:PPO Address: [address] PPO EPO Member Subscriber Plan / Payer (Ef fective 2018-Present) Name:Alejandra Huntley Relation to Subscriber:Self Name:Alejandra Huntley Payer ID:[id number] (NAIC) Type:PPO Address: [address] PPO EPO PPO EPO [place] [address] [place] [address] PPO EPO [facility] PPO EPO Care Teams Chief Operating Officer Relationship Specialty Start Date End Date Unknown, Unknown, PCP - General 09/03/23 Additional Source Comments The information contained in this document represents components of the legal health record. It is not the complete legal health record.[facility]
[2025-04-21 07:37] VITALS: BP 122/76; PULSE 80; RESP 16; O2SAT 100; BMI 33.7
== END 2025-04-21 07:52 | disposition home or self-care (01) ==
LOC: HO.HSM 07:29
PROVIDERS: PCP Nurse Practitioner Family; Visit Provider Nurse Practitioner
DX: G43.709 Chronic migraine without aura, not intractable, without status migrainosus (principal); R06.83 Snoring; R51.9 Headache, unspecified
CPT/HCPCS: 64615

== ENCOUNTER → 2025-04-21 07:29 | Outpatient (BNVA) | payer OTHER, SELFPAY | PROVIDERS: PCP Nurse Practitioner Family; Visit Provider Nurse Practitioner | DX: G43.709 Chronic migraine without aura, not intractable, without status migrainosus (principal) | CPT/HCPCS: 64615; J0585 ==

== ENCOUNTER → 2025-06-01 09:22 | Outpatient (REF) | payer OTHER, SELFPAY ==
--- OUTSIDE RECORDS SUMMARY | 2011-12-17 23:00 | XMS_ITS | Encounter Summary ---
Author Organization [facility] Address [address] [place] [address] Phone Care Team Providers Care Circular Stuffer Name Role Phone Unavailable Primary Care Provider Unavailabl e Encounter Details Date Type Department Care Team (Late st Contact Info) Description 12/18/2011 Hospital Encounter [facility],Outside Imaging [address] [place] [address] System, Provider [place] In, [place] [address] Social History Tobacco Use Types Packs/Day Years [...] high school, GED, job training, learning the Montenegrin language, technical skills, or developing parenting skills)? [...] on file documented as of this encounter Plan of [...] It is not the complete legal health record.[facility]
--- OUTSIDE RECORDS SUMMARY | 2025-01-24 08:45 | XMS_ITS ---
Author Organization [facility] Address [address] [place] [address] Care Team Providers Care Filler Wiper Name Role Phone Sasha Pelletier Primary Care Provider UnavailLeora Vaughn [phone] Encounters Encounter Location Date Provider Diagnosis [facility] [address] [place] [address] 01/24/2025 Leora Reveles Plan Of Treatment No Information Progress Notes * Celina REEDEROB: 1 (55 yo F)Acc No.[id number]:01/24/2025 Progress Notes Patient: Alejandra MILLER Provider: Canelo Reveles DPM :1970 A ge:54 Y S ex:Female Date:01/24/2025 Address:[address] [place], [place] [phone] Pcp:Sasha Pelletier Subjective: * Chief Complaints: * * Medical History: Objective: * Vitals: Assessment: Plan: * Treatment: * Images: * The named appointment provid er may or may not be the originator of this progress note, and it is not deemed complete until electronically signed by the appointment provider. Sign off status: Pending * Provider: Canelo Reveles DPM Date: 0 01/24/2025 Generated for Printi ng/Famoniqueg/eTransmitting on: 1 08/02/2024 09:24 AM EST
--- OUTSIDE RECORDS SUMMARY | 2025-06-01 09:25 | XMS_ITS | Patient Health Record ---
Author Organization [facility] [place] Address [address] [place] [address] Care Team Providers Care Freight Conductor Name Role Phone PelletierDaraSasha Primary Care Provider Unavailrobby maya Leora Reveles Unavailable [phone] Allergies No Known Allergies Results Component Value [...] Problem Acquired hammer toe of right foot (3266114203218814) Other hammer toe(s) (acquired), right foot (M20.41) Active confirmed Problem Plantar fasciitis of right foot (41819947657778390 ) Plantar fasciitis of right foot (M72.2) Active confirmed Problem Interstitial myositis (00687409) Interstitial myositis of right foot (M60.171) Active confirmed Problem Localized, primary osteoarthritis of the ankle and/or foot (813945389) Arthritis of joint of lesser toe, right (M19.071) Active confirmed Vital Signs Blood pressure diastolic 75 mm Hg 11/30/2024 Height 5ft 3in in 11/30/2024 Blood pressure systolic 120 mm Hg 11/30/2024 Weight 190 lbs 11/30/2024 BMI 33.65 kg/m2 11/30/2024 Procedures Procedure Date Ordered Date Performed Result Body Sit e ,[id number] TENDON SHEATH/LIGAMENT 10/13/2024 N/A ,[id number] TENDON SHEATH/LIGAMENT 11/30/2024 N/A Encounters Encounter Location Date Provider Diagnosis [facility] [address] [place] [address] [place] [address] 10/13/2024 Leora Black Plantar fasciitis of right [...] metatarsophalangeal joint of toe, initial encounter S93.149A [facility] [address] [address] 11/30/2024 Leora Reveles Plantar fasciitis of right [...] metatarsophalangeal joint of toe, initial encounter S93.149A [facility] [address] [address] 08/06/2024 [facility] Abdirizak [facility] [address] [address] 08/27/2024 Leora Reveles Assessments Encounter Date Diagnosis [...] Treatment Pending Test Test Name Order Date ,[id number] TENDON SHEATH/LIGAMENT 0 11/27/2020 [id number],[id number] TENDON SHEATH/LIGAMENT 0 01/15/2021 [id number],[id number] TENDON SHEATH/LIGAMENT 0 02/20/2021 [id number] TENDON SHEATH/LIGAMENT 0 10/13/2024 88939,[id number] TENDON SHEATH/LIGAMENT 0 11/30/2024 Insurance Providers Payer Name Payer Address Payer Phone Subscriber Number Group Number Insured Name Patient Relationship to Insured Coverage Start Date Coverage End Date [facility] All Others [address] [place] [address] [id number] Alejandra Huntley Self - patient is the insured Medical (General) History Medical History History ICD Code Anxiety Back,Hip,and Knee pain Headaches/Migraines Chicken pox Surgical History Surgery Date(Month/Year)
--- OUTSIDE RECORDS SUMMARY | 2025-06-01 09:25 | XMS_ITS | Clinical Summary ---
Author Organization [facility] Address [facility] [employer] [facility] [address] [place] [address] Phone Care Team Providers Care Aquatic Habitat Biologist Name Role Phone Unknown, Unknown Primary Care [...] 1 kit, 3 Refills, Maintenance, 04/17/21 12:49:00 [facility], [facility], Partial fill upon patient [...] high school, GED, job training, learning the Sudanese language, technical skills, or developing parenting skills)? [...] (12/23/2022 8:28 AM EDT) HDL 46 mg/dL [facility] Comment: Interpretation <40 mg/dL: Low HDL cholesterol (major risk factor for CHD) Greater than or equal to 60 mg/dL: High HDL cholesterol ( negative risk factor for CHD) HDL - cholesterol is affected by a number of factors, e.g. smoking, excerise, hormones, sex and age. CHOLESTEROL 217 0 - 240 mg/dL [facility] TRIGLYCERIDES 154 30 - 160 mg/dL [facility] LDL 140(H) 50 - 129 mg/dL [facility] Comment: LDL levels in terms of risk for coronary heart disease: <100 mg/dL: Optimal 100-129 mg/dL: Near or above optimal 130-159 mg/dL: Borderline high 160-189 mg/dL: High >190 mg/dL: Very High CARDIAC RISK RATIO 4.7(H) 3.3 - 4.4 C [facility] Blood 12/23/2022 8:28 AM EDT 12/23/2022 8:32 AM EDT us Xiomara Chambers NP LAB BLOOD BKR ORDERABLES Final Result Performing Organization Address City/[facility]/ZIP Co de Phone Number [address] [address] * Hepatitis C antibody, qualitative (07/01/2022 8:53 AM EST) HCV NON-REACTIV E NON-REACTI VE [facility] Blood 07/01/2022 8:53 AM EST 07/01/2022 8:57 AM EST Xiomara Chambers NP LAB BLOOD BKR ORDERABLES Final Result Performing Organization Address City/[facility] Co de Phone Number [address] [address] * PAP SMEAR FOR RESULT ENTRY ONLY (12/15/2020) Historical Provider HEALTH MAINTENANCE Edited Result - Final from Last 3 Months or Most Recently Relevant to Health Maintenance Insurance [address] [place], [place] [address]O EPO PPO EPO PPO EPO PPO EPO PPO EPO PPO EPO PPO EPO [facility] PPO EPO [facility] PPO EPO Care Teams Aquatic Habitat Biologist Relationship Specialty Start Date End Date Unknown, Unknown, PCP - General 09/03/23 Additional Source Comments The information contained in this document represents components of the legal health record. It is not the complete legal health record.[facility]
--- OUTSIDE RECORDS SUMMARY | 2025-06-01 09:25 | XMS_ITS | Encounter Summary ---
Author Organization [facility] Address [address] [facility] [address] [place] [address] Phone Care Team Providers Care Workers Compensation Claims Assistant Name Role Phone HugoNella Pallavi HOUSE CALLS NURSE PRACTITIONER Unavailable Virginia Funes BRAND DESIGNER Unavailable Mona Perkins MD Unavailable Chirag Desai MD Unavailable Apryl Bess HOUSE CALLS NURSE PRACTITIONER Unavailable Xiomara Chambers HOUSE CALLS NURSE PRACTITIONER Primary Care Provider Gee Guy MD Unavailable Henny Cheney MD Unavailable Unknown, Unknown Primary Care Provider Daisy storey Encounter Details Date Type Department Care Team (Late st Contact Info) Description 12/03/2017 Ancillary Orders [facility],Outside Imaging [address] [place] [address] System, Provider Not In, PhD [address] [address] Social History Tobacco Use Types Packs/Day Years [...] documented as of this encounter Care Teams Workers Compensation Claims Assistant Relationship Specialty Start Date End Date Xiomara Chambers HOUSE CALLS NURSE PRACTITIONER [address] [place] [phone] PCP - General Family Medicine 10/24/17 09/02/23 Unknown, Unknown, MD PCP - General 09/03/23 Nella Arias NP [address] [place] [address] [email or web address] Historical LMR Provider 03/27/17 1 Virginia Funes FNP [address] [facility] [facility] 204, [address] [place] [address] Historical LMR Provider 03/27/17 03/24/19 Mona Perkins MD 38 [facility]. 204, [address] [place] [address] Historical LMR Provider 03/27/17 Chirag Schuster MD [address] [place] [address] [email or web address] Historical LMR Provider 03/27/17 Apryl Castaneda NP [address] [place] [address] Historical LMR Provider 03/27/1703/24 Gee Guy MD [address] [place] [address] [email or web address] Insurance Assigned Provider 07/09/19 11/13/19 Henny Cheney MD [address] [place] [address] [email or web address] Insurance Assigned Provider 11/13/19 12/16/20 documented as of this encounter Additional Source Comments The information contained in this document represents components of the legal health record. It is not the complete legal health record.[facility]
--- OUTSIDE RECORDS SUMMARY | 2025-06-01 09:25 | XMS_ITS | Encounter Summary ---
Author Organization [facility] Address [address] [place] [address] Phone Care Team Providers Care Electric Motor Repairer Name Role Phone HugoNella Pallavi PUBLIC HEALTH DOCTOR Unavailable ShantelVirginia Alyssa CONTROL SYSTEMS ENGINEER Unavailable Mona Perkins MD Unavailable Chirag Desai MD Unavailable Apryl Bess PUBLIC HEALTH DOCTOR Unavailable Xiomara Chambers PUBLIC HEALTH DOCTOR Primary Care Provider Gee Guy MD Unavailable Henny Cheney MD Unavailable Unknown, Unknown Primary Care Provider Daisy storey Encounter Details Date Type Department Care Team (Late st Contact Info) Description 04/02/2018 Transcribe Orders [facility] [address] [place] [address] Xiomara Chambers, PUBLIC HEALTH DOCTOR [address] [facility] [address] [place] [address] [email or web address] Social History Tobacco Use Types Packs/Day Years [...] documented as of this encounter Care Teams Electric Motor Repairer Relationship Specialty Start Date End Date Xiomara Chambers PUBLIC HEALTH DOCTOR [address] [facility] [address] [address] PCP - General Family Medicine 10/24/17 09/02/23 Unknown, Unknown, PCP - General 09/03/23 Nella Arias NP [address] [place] [address] [email or web address] Historical LMR Provider 03/27/17 Virginia Funes FNP 38 [facility] 204, [address] [place] [address] [email or web address] Historical LMR Provider 03/27/17 03/24/19 Mona Perkins MD 38 [facility] 204, [address] [place] [address] Historical LMR Provider 03/27/17 Chirag Schuster MD [address] [place] [address] Historical LMR Provider 03/27/17 9 Apryl Bess, SUDHIR [address] [address] Historical LMR Provider 03/27/1703/24 Gee Guy MD [address] [place] [address] [email or web address] Insurance Assigned Provider 07/09/19 11/13/19 Henny Cheney MD [address] [place] [address] [email or web address] Insurance Assigned Provider 11/13/19 12/16/20 documented as of this encounter Additional Source Comments The information contained in this document represents components of the legal health record. It is not the complete legal health record.[facility]
== END ==
LOC: HO.SL 09:22
PROVIDERS: PCP Nurse Practitioner Family; Visit Provider Nurse Practitioner
DX: R06.83 Snoring (principal); R51.9 Headache, unspecified; G43.709 Chronic migraine without aura, not intractable, without status migrainosus
CPT/HCPCS: 95806

== ENCOUNTER → 2025-06-04 09:30 | Outpatient (BNV) | payer OTHER, SELFPAY | PROVIDERS: PCP Nurse Practitioner Family; Visit Provider Psychiatry & Neurology Neurology | DX: G47.33 Obstructive sleep apnea (adult) (pediatric) (principal) | CPT/HCPCS: 95806 ==